=== PATIENT | female | born 1950 | race Two or more races ===

== ENCOUNTER 2017-07-22 13:15 | Outpatient (CLI) | payer MEDICARE, BC | END 2017-07-22 23:59 | disposition home or self-care (01) | LOC: WOU 13:15 | PROVIDERS: ATTEND Podiatrist Foot & Ankle Surgery | DX: S92.341A Displaced fracture of fourth metatarsal bone, right foot, initial encounter for closed fracture (principal); W22.03XA Walked into furniture, initial encounter; Y92.003 Bedroom of unspecified non-institutional (private) residence as the place of occurrence of the external cause; Z85.3 Personal history of malignant neoplasm of breast | CPT/HCPCS: G0463 ==